=== PATIENT | female | born 1960 | race Caucasian/White ===

== ENCOUNTER → 2019-03-26 14:36 | Outpatient (CLI) | payer BC, SELFPAY ==
[2019-03-26 08:17] VITALS: BMI 26.6
== END ==
PROVIDERS: Referring Provider Physician Assistant Medical; Visit Provider Physician Assistant Medical
DX: J02.9 Acute pharyngitis, unspecified (principal)
CPT/HCPCS: 87070

== ENCOUNTER 2021-10-01 08:28 | Day surgery (SDC) | payer BC, SELFPAY ==
[2021-10-01] VITALS (7 sets, daily range): BP systolic 110–127; BP diastolic 69–77; PULSE 64–78; RESP 15–18; TEMP 36.4–36.7; O2SAT 96–100; BMI 27.1
--- NOTE | 2021-10-01 | COLBX_PTH ---
PATIENT: CHERELLE JOEL LOC: EN U#:[id number] AGE/SX: 61/F ROOM: RE10/01/[address]: Dr. Ervin Gregory MD : 1960 BED: DIS: 10/01/2021 SPEC #: [id number] RECD: 10/01/21 12:51 STATUS: LISA REMiguel #: [id number] EKVIN: 10/01/21 00:[address]: Ervin Gregory DEPT: SURGICAL PATHOLOGY RECD BY: Narendra Leo ENTERED: 10/01/21 12:52 SP TYPE: COLON BX OTHR DR: No Primary Care Phys Tissues: Rectum, NOS Procedures: Surgery Specimen Level IV HEADER OPERATION: Colonoscopy ? open access (MAC) with polypectomy PRE-OP DIAGNOSIS: Screening TISSUE SUBMITTED: Rectal polyp MICROSCOPIC DIAGNOSIS Rectal polyp, biopsy: Tubular adenoma. AM:odalis 10/02/2021 MICROSCOPIC DESCRIPTION Slides are reviewed. GROSS DESCRIPTION Received in fixative is one container labeled with the patient's name and designated rectal polyp. The specimen consists of a piece of abreu-pink polyp measuring 0.4 x 0.4 x 0.2 cm. The specimen is totally submitted in one cassette. / SJ:odalis 10/01/2021 TC:5 CPT: 06615
[2021-10-01] MEDS: Lactated Ringers 1,000 ML 15 ML IV (08:45)
--- NOTE | 2021-10-01 09:23 | H&P.OPEN ---
HPI - General HPI Narrative CHERELLE JOEL, is a 61 F who presents for screening colonoscopy. Patient has never had a colonoscopy in the past. She denies any abdominal pain or blood in the stool. She denies any family history of colon cancer. 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 History of pituitary adenoma Non-smoker Pituitary adenoma Thyroid disease Wears glasses Home Medications ibuprofen 200 mg capsule 200 mg PO Q6H 03/26/19 [History Last Taken Unknown] ascorbic acid (vitamin C) [Vitamin C] 2,000 mg PO DAILY 09/30/21 [History Last Taken Unknown] ashwagandha root extract 500 mg PO DAILY 09/30/21 [History Last Taken Unknown] astragalus root 250 mg PO DAILY 09/30/21 [History Last Taken Unknown] calcium citrate 1,000 mg PO DAILY 09/30/21 [History Last Taken Unknown] kwekkvid-lvromq-uktxfynw acid [Collagen 1500 Plus C] 1 cap PO DAILY 09/30/21 [History Last Taken Unknown] gamma immune glob from whey 250 mg PO DAILY 09/30/21 [History Last Taken Unknown] methylsulfonylmethane [MSM] 500 mg PO BID 09/30/21 [History Last Taken Unknown] milk thistle 300 mg PO DAILY 09/30/21 [History Last Taken Unknown] pqthwshc-tiw-kqkad acid-fhy859 [Alive Premium Women's] 1 tab PO DAILY 09/30/21 [History Last Taken Unknown] Allergy/AdvReac Type Severity Reaction Status Date / Time kiwi Allergy Mild UNKNOWN Verified 10/01/21 08:56 Family History Unknown Diabetes Heart disease Cancer Surgical History (Updated 09/30/21 @ 12:10 by Alison Sharif) History of pituitary surgery Social History Smoking Status: Never smoker alcohol intake: never Past Medical/Surgical History Planned Operation Planned Operative Procedure/s: COLONOSCOPY Previous Hospitalizations/Surgeries HX Hospitalizations: No Any Problems With Anesthesia: No You/Your Family Experience Fever (Hyperthermia) With Anes: No Cholinesterase deficiency: No Cardiovascular Hx Hypertension: No Respiratory Hx Sleep Apnea: No Hx Respiratory Tract Infection/Cold (presently): No Do You Snore Loudly (louder than talking or can be heard): No Do You Often Feel Tired/ Fatigued/ Sleepy Dring Daytime?: No Has Anyone Observed You Stop Breathing During Sleep?: No Result (for STOP score): Negative Smoking Status: Never smoker Neurological Does patient have nerve stimulator: No Reproduction : No Miscellaneous Recent Exposure to Contagious Disease: No Allergies kiwi Allergy (Mild, Verified 10/01/21 08:56) UNKNOWN Discharge Is Pt Admitted From a Detention, or a Correction: No Who Could Help: BROTHER After D/C, Where Do you Plan to Go: Return Home Vital Signs Vital Signs Vital Signs: 10/01/21 08:57 Temperature 98.0 F Temperature Source Temporal Pulse Rate 71 Respiratory Rate 18 Respiratory Pattern Normal Blood Pressure 127/70 H Blood Pressure Mean 89 Blood Pressure Source Monitor Blood Pressure Position Sitting Blood Pressure Location Right Arm Pulse Ox 100 Oxygen Delivery Method Room Air Weight Weight: 163 lb 2.273 oz Body Mass Index (BMI) 27.1 Physical Exam Const alert and oriented x3 Resp normal respiratory effort and normal air movement Cardio regular rate and regular rhythm GI soft to palpation, non-tender and non-distended Assessment & Plan Assessment/Plan (1) Encounter for screening for malignant neoplasm of colon: PLAN: I explained endoscopy in detail to the patient. I explained the risks including but not limited to stroke or heart attack with anesthesia, perforation of the GI tract, bleeding, infection. I explained that any of these could necessitate further emergency surgery. The patient understands and all questions were answered sufficiently. The patient wishes to proceed with procedure. Ervin Gregory MD Pager: [facility] [address] [place] [address], [address] [place] [address] Office: Surgery Risks - Colonoscopy Risks Include but are not Limited To: Risks include but are not limited to: Bleeding, perforation requiring further surgery, inability to complete colonoscopy requiring barium enema.
--- NOTE | 2021-10-01 09:51 | OP.COLON_ITS ---
Patient Name: Mimi Belle Procedure Date: 10/01/2021 9:27 AM Date of : 1960 Age: 61 Procedure: Colonoscopy Indications: Screening for colorectal malignant neoplasm Providers: Ervin Gregory MD Medicines: Monitored Anesthesia Care Patient Profile: This is a 61 year old female. Refer to note in patient chart for documentation of history and physical. Last Colonoscopy: none. The patient's first colonoscopy is today. Complications: No immediate complications. Procedure: Pre-Anesthesia Assessment: - Prior to the procedure, a History and Physical was performed, and patient medications and allergies were reviewed. The patient's tolerance of previous anesthesia was also reviewed. The risks and benefits of the procedure and the sedation options and risks were discussed with the patient. All questions were answered, and informed consent was obtained. Prior Anticoagulants: The patient has taken no previous anticoagulant or antiplatelet agents. After reviewing the risks and benefits, the patient was deemed in satisfactory condition to undergo the procedure. After I obtained informed consent, the scope was passed under direct vision. Throughout the procedure, the patient's blood pressure, pulse, and oxygen saturations were monitored continuously. The Colonoscope was introduced through the anus and advanced to the cecum, identified by appendiceal orifice and ileocecal valve. The colonoscopy was performed without difficulty. The patient tolerated the procedure well. The quality of the bowel preparation was good. Scope In: 9:33:34 AM Scope Withdrawal Time 0 hours 5 minutes 29 seconds Scope Out: 9:44:23 AM Total Procedure Duration Time 0 hours 10 minutes 49 seconds Findings: A medium polyp was found in the rectum. The polyp was removed with a hot snare. Resection and retrieval were complete. The exam was otherwise without abnormality on direct and retroflexion views. Impression: - One medium polyp in the rectum, removed with a hot snare. Resected and retrieved. - The examination was otherwise normal on direct and retroflexion views. Recommendation: - Discharge patient to home. - Resume previous diet. - Continue present medications. - Await pathology results. - Repeat colonoscopy in 5 years for surveillance based on pathology results. Procedure Code(s): --- Professional --- 39419, 33, Colonoscopy, flexible; with removal of tumor(s), polyp(s), or other lesion(s) by snare technique Diagnosis Code(s): --- Professional --- Z12.11, Encounter for screening for malignant neoplasm of colon K62.1, Rectal polyp CPT copyright 2017 [employer]. All rights reserved. The codes documented in this report are preliminary and upon application support analyst review may be revised to meet current compliance requirements. Ervin Gregory MD 10/01/2021 9:51:06 AM This report has been signed electronically. Number of Addenda: 0 Note Initiated On: 10/01/2021 9:27 AM
== END 2021-10-01 10:46 | disposition home or self-care (01) ==
LOC: EN 08:30 → AC 08:32
PROVIDERS: Visit Provider Surgery
PROC: 0DJD8ZZ Inspection of Lower Intestinal Tract, Via Natural or Artificial Opening Endoscopic (ICD-10-PCS; CPT 45378; principal; 2021-10-01 09:25)
DX: Z12.11 Encounter for screening for malignant neoplasm of colon (principal); D12.8 Benign neoplasm of rectum; K21.9 Gastro-esophageal reflux disease without esophagitis; E07.9 Disorder of thyroid, unspecified; Z79.899 Other long term (current) drug therapy
CPT/HCPCS: 45385; 88305; J7120; J2405

== ENCOUNTER → 2023-05-28 | Outpatient (CLI) | payer BC, SELFPAY ==
[2023-05-28 10:35] LABS: Bacteria 0 SEEN /hpf (None Seen); Mucous, Urine 0 SEEN /hpf (<or=2+); Red Blood Cells-Urine 0 SEEN /hpf (0-5); Squamous Epithelial Cells - UA 0 SEEN /hpf (5-10); White Blood Cells 0 SEEN /hpf (0-5)
[2023-05-28 10:46] LABS: Color, Urine Yellow (Yellow); Glucose, Dipstick Normal (Normal); Ketone-Dipstick Negative (Negative); Leukocyte Esterase-Dipstick 25 /ul (Negative); Nitrite-Dipstick Negative (Negative); Occult Blood-Urine Negative /ul (Negative); Protein-Dipstick Negative (Negative); Urine Bilirubin Dipstick Negative (Negative); Urine Clarity Clear (Clear); Urine Urobilinogen Normal (Normal); Urine pH 6.5 (5.0 - 8.0)
== END | disposition home or self-care (01) ==
LOC: LABSPEC 10:29
PROVIDERS: Referring Provider Physician Assistant Surgical; Visit Provider Physician Assistant Surgical
DX: R30.0 Dysuria (principal)
CPT/HCPCS: 81001; 87086

== ENCOUNTER → 2023-07-20 | Outpatient (CLI) | payer BC, SELFPAY ==
--- NOTE | 2023-07-20 14:11 | US_ITS ---
INDICATION: UTI EXAMINATION: Ultrasound US Kidney(s) complete (eg, kidneys and bladder) TECHNIQUE: Simmons scale and color doppler images were obtained of the kidneys. COMPARISON: FINDINGS: RIGHT KIDNEY: 10.3 x 4.3 x 5.0 cm. The cortex is 14 mm. There is no hydronephrosis. There are 2 nonobstructive calculi up to 4 mm. No focal lesion or perinephric collection is demonstrated. LEFT KIDNEY: 9.8 x 4.3 x 4.5 cm. The cortex is 13 mm. There is no hydronephrosis. There are 2 nonobstructive calculi up to 5 mm. No focal lesion or perinephric collection is demonstrated. URINARY BLADDER: No acute abnormality. US/Kidney and Bladder IMPRESSION: Nonobstructive bilateral renal calculi. Electronically Signed: Jack Roberts DO at 22:37 EDT ,
== END | disposition home or self-care (01) ==
PROVIDERS: Referring Provider Urology; Visit Provider Urology
DX: N39.0 Urinary tract infection, site not specified (principal)
CPT/HCPCS: 76770

== ENCOUNTER → 2023-10-30 | Outpatient (CLI) | payer BC, SELFPAY ==
--- NOTE | 2023-10-30 06:46 | CT_ITS ---
STUDY: CT ABDOMEN AND PELVIS WITHOUT CONTRAST REASON FOR EXAM: Female, 63 years old. Intrarenal calculi. RADIATION DOSAGE (If Supplied By Facility): CTDIvol = ( 7.20 ) mGy, DLP = ( 361.60 ) mGycm TECHNIQUE: Transaxial images were obtained from the dome of the diaphragm to the symphysis pubis without oral contrast, and without intravenous contrast. Sagittal and coronal images were reconstructed. Individualized dose optimization techniques were used for this CT. COMPARISON: None. FINDINGS: The visualized lung bases are unremarkable. The visualized portions of the heart are within normal limits. Normal liver. Normal gallbladder and extrahepatic biliary system. There are multiple benign calcified granulomata of the spleen. Normal pancreas. Normal bilateral adrenal glands. Normal right kidney. Normal left kidney. Normal visualized stomach. Normal small intestine. Normal colon. The appendix is visualized and appears normal. There is minimal atherosclerotic calcification of the abdominal aorta, without a demonstrated aneurysm. Normal inferior vena cava. Normal retroperitoneum. Normal urinary bladder. Normal abdominal wall. Normal osseous structures. CT/Abdomen/Pelvis without Cont IMPRESSION: Normal unenhanced CT of the abdomen and pelvis. Electronically Signed: Diallo Moulton MD at 11:10 EDT ,
== END | disposition home or self-care (01) ==
PROVIDERS: Referring Provider Urology; Visit Provider Urology
DX: N20.0 Calculus of kidney (principal)
CPT/HCPCS: 74176